=== PATIENT | male | born 1960 | race Two or more races ===

== ENCOUNTER 2016-09-16 22:02 | Observation (INO) | payer OTHER ==
[~2016-09-16] VITALS: Ht 175.3 cm; Wt 127.0 kg
[2016-09-16 23:15] LABS: Basophils # (auto) 0 uL; Basophils % (auto) 0.3 % (0.0-2.0); Eosinophils # (auto) 0.4 uL; Hematocrit 48.3 % (41.0-53.0); Hemoglobin 15.9 g/dL (13.5-17.5); Lymphocytes # (auto) 2.6 uL; Lymphocytes % (auto) 21.5 % (10.0-50.0); Mean Corpuscular Hemoglobin 28.4 pg (28.0-32.0); Mean Corpuscular Hgb Conc. 32.9 g/dL (32.0-36.0); Mean Corpuscular Volume 86.3 fL (80.0-100.0); Mean Platelet Volume 7.4 fL (7.4-10.4); Monocytes % (auto) 8.2 % (0.0-12.0); Neutrophils # (auto) 8.1 uL; Platelet Count (auto) 374 10^3/uL (140-450); Red Cell Distribution Width 13.5 % (11.6-16.0); White Blood Cell 12.1 10^3/uL (4.4-10.8)
[2016-09-16 23:29] LABS: INR 0.93 (0.9-1.15); Partial Thromboplastin Time 26.4 sec (22.64-33.71)
[2016-09-16 23:41] LABS: Albumin 3.6 g/dL (3.4-5.0); Bilirubin, Total 0.5 mg/dL (0.2-1.0); Calcium 9.3 mg/dL (8.5-10.1); Potassium 3.8 mmol/L (3.5-5.1); Total Protein 7.4 g/dL (6.4-8.2)
[2016-09-17 00:35] LABS: Urine Bilirubin Negative (Negative); Urine Blood Negative /uL (Negative); Urine Color Yellow (Yellow); Urine Glucose Normal (Normal); Urine Ketone Negative (Negative); Urine Nitrite Negative (Negative); Urine RBC <1 /hpf (0 - 3); Urine Urobilinogen Normal (Negative); Urine pH 6.5 (5.0-8.0)
[2016-09-17] MEDS ORDERED: FUROSEMIDE 20 MG/2 ML VIAL IV ONE (01:30)
[2016-09-17 01:33] LABS: Uric Acid 4.8 mg/dL (3.5-7.2)
[2016-09-17 01:37] LABS: B-Type Natriuretic Peptide 20.5 pg/mL (0-100); Temperature: 21.1 C (20.0-25.0)
[2016-09-17 02:05] VITALS: BP 128/71
== END 2016-09-17 03:54 | disposition home or self-care (01) | DRG 605 ==
LOC: ER 22:27 → OVERFLOW 09-17 02:14 → ER 09-17 03:54
PROVIDERS: ADMIT Emergency Medicine; ATTEND Emergency Medicine
DX: S70.02XA Contusion of left hip, initial encounter (principal); W11.XXXA Fall on and from ladder, initial encounter; Y93.89 Activity, other specified; Y92.89 Other specified places as the place of occurrence of the external cause; Y99.8 Other external cause status
CPT/HCPCS: 36415; 70450; 71010; 72125; 73630; 73700; 80053; 81001; 83880; 84484; 84550; 85025; 85610; 85730; 93005; 93970; 96374; 99285; G0378; J1940